=== PATIENT | male | born 1980 | race Caucasian/White ===

== ENCOUNTER 2019-02-01 12:08 | Emergency (ER) | payer OTHER ==
[~2019-02-01] VITALS: Ht 162.6 cm; Wt 91.8 kg
== END 2019-02-01 15:51 | disposition home or self-care (01) ==
LOC: ER 12:08
DX: R10.31 Right lower quadrant pain (principal)

== ENCOUNTER → 2019-02-01 | Emergency (ER) | payer OTHER ==
[~2019-02-01] VITALS: Ht 165.1 cm; Wt 88.5 kg
[~2019-02-01] MED LIST: BISOPROLOL FUMAR5 MG
== END | disposition left against medical advice (07) ==
LOC: ER 00:59 → EDSEX 01:08 → ER 01:08
DX: Z53.20 Procedure and treatment not carried out because of patient's decision for unspecified reasons (principal)